=== PATIENT | male | born 1970 | race Caucasian/White ===

== ENCOUNTER 2020-12-30 12:56 | Emergency (ER) | payer SELFPAY ==
[2020-12-30 13:02] VITALS: PULSE 106; RESP 24; TEMP 36.8; O2SAT 100; BMI 27.8
[2020-12-30 13:45] VITALS: BP 126/88; PULSE 92; RESP 18; O2SAT 99
--- NOTE | 2020-12-30 13:46 | ED_ITS ---
HPI - Dental/Oral General: Chief complaint: Dental/Oral Stated complaint: PAIN AND SWELLING IN JAW Time Seen by Provider: 12/30/20 13:10 History of Present Illness: HPI Narrative: Planes of tooth pain last few days . see nurse's triage note MD Complaint: tooth pain Teeth map: 1. Onset (ago): day(s) Duration: constant Severity: moderate Relieving factors: nothing Context: poor dental care Associated symptoms: Reports no associated symptoms; Denies fever(s) Review of Systems Const: Denies: fever(s) or chills ENMT: Reports: dental pain Psych: Denies: depression Physical Exam Const: COMMON NORMALS: no acute distress HENMT: TEETH & GINGIVA IMAGES: 1. Tooth is broke off gum slightly swollen Neuro: OTHER: Patient is very fidgety, Psych: COMMON NORMALS: mental status grossly normal MOOD & AFFECT: Yes elevated mood Course Vital Signs: Vital signs: Vital Signs Temperature 98.3 F 12/30/20 13:02 Pulse Rate 92 12/30/20 13:45 Respiratory Rate 18 12/30/20 13:45 Blood Pressure 126/88 12/30/20 13:45 Pulse Oximetry 99 12/30/20 13:45 MDM - Dental/Oral MDM Narrative: Medical decision making narrative: Patient has a hard time sitting still in chair, has extra movements of extremities Discharge Plan Discharge Patient Disposition: Home Clinical Impression: Toothache Condition: Stable Prescriptions: New tramadol 50 mg tablet 50 mg PO TID PRN (Reason: pain) Qty: 7 RF: 0 clindamycin HCl 300 mg capsule 300 mg PO Q8H 7 Days Qty: 21 RF: 0 Discharge Orders: Discharge ED (Routine); Ordered 12/30/20 Ordered By: Gaudencio Chang Referrals: Richard Guajardo DO [Primary Care Provider] - Discharge Diet: Usual diet Discharge Activity: Resume usual activity Patient Instructions: Toothache (ED), Opioid Safety Activity Restrictions/Additional Instructions: Follow-up with medical provider as directed. Take medications as prescribed. Return to the ER or your medical provider if condition worsens. Please read and understand discharge instructions. If any questions ask please. Contact Dentistand make an appointment Coding Level of Care Code ED Molding Machine Operator for Edmund Burrows
== END 2020-12-30 13:48 | disposition home or self-care (01) ==
PROVIDERS: Emergency Provider Nurse Practitioner Family; PCP Orthopaedic Surgery
DX: K08.89 Other specified disorders of teeth and supporting structures (principal)
CPT/HCPCS: 99281